=== PATIENT | female | born 1960 | race Caucasian/White ===

== ENCOUNTER 2023-08-08 09:23 | Day surgery (SDC) | payer BC ==
[~2023-08-08 09:23] MED LIST: Midazolam 1 MG/ML 2 ML SDV ONE; Propofol 200 MG/20 ML SDV ONE
[2023-08-08] MEDS ORDERED: Sodium Chloride 0.9% 10 ML Syringe FLUSH PRN (09:30)
[2023-08-08] MEDS: Lactated Ringers 1,000 ML IV SCH (10:06)
[2023-08-08 11:57] VITALS: BP 109/59; PULSE 69
== END 2023-08-08 12:25 | disposition home or self-care (01) ==
LOC: LL.SDS 09:23
PROVIDERS: ATTEND Surgery
DX: Z12.11 Encounter for screening for malignant neoplasm of colon (principal); K64.4 Residual hemorrhoidal skin tags; I10 Essential (primary) hypertension; E78.00 Pure hypercholesterolemia, unspecified; Z79.899 Other long term (current) drug therapy; Z91.013 Allergy to seafood; Z88.8 Allergy status to other drugs, medicaments and biological substances
CPT/HCPCS: 45378; J2250; J2704; J7120

== ENCOUNTER 2025-01-22 13:42 | Emergency (ER) | payer BC ==
[2025-01-22 14:07] VITALS: BP 127/63; PULSE 82
[2025-01-22] MEDS: Diphtheria,Pertussis(Acell),Tetanus Vaccine 0.5 ML Syringe IM ONE (14:15)
== END 2025-01-22 14:30 | disposition home or self-care (01) ==
LOC: LL.ED 13:42
DX: S60.410A Abrasion of right index finger, initial encounter (principal); S60.412A Abrasion of right middle finger, initial encounter; I10 Essential (primary) hypertension; Z88.8 Allergy status to other drugs, medicaments and biological substances; Z91.013 Allergy to seafood; Z79.899 Other long term (current) drug therapy; Z23 Encounter for immunization; W23.1XXA Caught, crushed, jammed, or pinched between stationary objects, initial encounter; Y93.89 Activity, other specified
CPT/HCPCS: 73140-RT; 90471; 90715; 99283-25